=== PATIENT | male | born 1930 | race Caucasian/White ===

== ENCOUNTER 2020-12-29 11:51 | Outpatient (CLI) | payer MEDICARE, BC | END 2020-12-29 11:52 | disposition home or self-care (01) | LOC: CSHWCC 11:51 | PROVIDERS: ATTEND Nurse Practitioner Family | DX: E11.621 Type 2 diabetes mellitus with foot ulcer (principal); L97.428 Non-pressure chronic ulcer of left heel and midfoot with other specified severity; R60.0 Localized edema; E11.42 Type 2 diabetes mellitus with diabetic polyneuropathy; L97.426 Non-pressure chronic ulcer of left heel and midfoot with bone involvement without evidence of necrosis; G90.09 Other idiopathic peripheral autonomic neuropathy; I10 Essential (primary) hypertension; I87.2 Venous insufficiency (chronic) (peripheral); I89.0 Lymphedema, not elsewhere classified; M86.672 Other chronic osteomyelitis, left ankle and foot; R05 Cough; R55 Syncope and collapse; Z85.46 Personal history of malignant neoplasm of prostate | CPT/HCPCS: 99213; G0463 ==

== ENCOUNTER 2021-04-29 09:09 | Outpatient (CLI) | payer BC, MEDICARE | END 2021-04-29 09:10 | disposition home or self-care (01) | LOC: CSHWCC 09:09 | PROVIDERS: ATTEND Nurse Practitioner Family | DX: I83.12 Varicose veins of left lower extremity with inflammation (principal); E11.621 Type 2 diabetes mellitus with foot ulcer; L97.519 Non-pressure chronic ulcer of other part of right foot with unspecified severity; E11.42 Type 2 diabetes mellitus with diabetic polyneuropathy; G90.09 Other idiopathic peripheral autonomic neuropathy; I89.0 Lymphedema, not elsewhere classified; I10 Essential (primary) hypertension; M86.672 Other chronic osteomyelitis, left ankle and foot; R05 Cough; R55 Syncope and collapse; R60.0 Localized edema; Z85.46 Personal history of malignant neoplasm of prostate | CPT/HCPCS: 99213; G0463 ==

== ENCOUNTER 2021-08-17 11:50 | Outpatient (CLI) | payer MEDICARE, BC | END 2021-08-17 11:51 | disposition home or self-care (01) | LOC: CSHWCC 11:50 | PROVIDERS: ATTEND Nurse Practitioner Family | DX: L89.153 Pressure ulcer of sacral region, stage 3 (principal); L89.313 Pressure ulcer of right buttock, stage 3; R60.0 Localized edema; E11.622 Type 2 diabetes mellitus with other skin ulcer; L97.811 Non-pressure chronic ulcer of other part of right lower leg limited to breakdown of skin; E11.621 Type 2 diabetes mellitus with foot ulcer; L97.509 Non-pressure chronic ulcer of other part of unspecified foot with unspecified severity; E11.42 Type 2 diabetes mellitus with diabetic polyneuropathy; I10 Essential (primary) hypertension; I83.12 Varicose veins of left lower extremity with inflammation; I89.0 Lymphedema, not elsewhere classified; M86.672 Other chronic osteomyelitis, left ankle and foot; R05.9 Cough, unspecified; R55 Syncope and collapse; Z74.01 Bed confinement status; Z85.46 Personal history of malignant neoplasm of prostate | CPT/HCPCS: 97139; G0463; 99214 ==

== ENCOUNTER 2021-09-11 08:20 | Outpatient (CLI) | payer MEDICARE, BC | END 2021-09-11 08:21 | disposition home or self-care (01) | LOC: CSHWCC 08:20 | PROVIDERS: ATTEND Nurse Practitioner Family | DX: L89.153 Pressure ulcer of sacral region, stage 3 (principal); L89.313 Pressure ulcer of right buttock, stage 3; E11.621 Type 2 diabetes mellitus with foot ulcer; E11.622 Type 2 diabetes mellitus with other skin ulcer; L97.811 Non-pressure chronic ulcer of other part of right lower leg limited to breakdown of skin; L97.821 Non-pressure chronic ulcer of other part of left lower leg limited to breakdown of skin; L97.509 Non-pressure chronic ulcer of other part of unspecified foot with unspecified severity; E11.42 Type 2 diabetes mellitus with diabetic polyneuropathy; R60.0 Localized edema; G90.09 Other idiopathic peripheral autonomic neuropathy; I83.12 Varicose veins of left lower extremity with inflammation; I10 Essential (primary) hypertension; M86.672 Other chronic osteomyelitis, left ankle and foot; I89.0 Lymphedema, not elsewhere classified; R05.9 Cough, unspecified; R55 Syncope and collapse; Z74.01 Bed confinement status; Z85.46 Personal history of malignant neoplasm of prostate ==